=== PATIENT | female | born 1990 ===

== ENCOUNTER 2023-08-26 10:20 | Outpatient (REF) | payer MEDICAID, SELFPAY ==
[2023-08-26 13:17] LABS: MANUAL DIFF FLAG NO
[2023-08-26 13:32] LABS: Basophils Percent Auto 0.6 % (0-2); Eosinophils Absolute Auto 0.1 X10*3/uL (0.0-0.4); Eosinophils Percent Auto 1.1 % (0-4); Hematocrit 27.5 % (37.0-47.0); Hemoglobin 9.9 g/dl (12.0-16.0); Imm Gran Abs Auto 0.01 X10*3/uL (0.00-0.03); Imm Gran Pct Auto 0.2 % (0.0-0.4); Immature Retic Fraction 37.6 % (3.0-15.9); Lymphocytes Percent Auto 48.4 % (20-40); Mean Corpuscular Hemoglobin 33.7 pg (27.0-33.0); Mean Corpuscular Volume 93.5 fL (80.0-98.0); Mean Platelet Volume 12.3 fL (9.4-12.3); Monocytes Absolute Auto 0.9 X10*3/uL (0.1-1.2); Neutrophils Absolute Auto 2.2 x10*3/uL (2.0-8.3); Neutrophils Percent Auto 34.7 % (45-73); Platelet Count 296 X10*3/uL (160-400); Red Blood Count 2.94 X10*6/uL (4.20-5.50); Red Cell Distribution Width 15.8 % (11.0-16.0); Retic HGB Equivalent 35.9 pg (30.0-35.0); Reticulocytes Absolute 0.244 X10*6/uL (0.026-0.095); White Blood Count 6.2 X10*3/uL (4.8-10.8)
[2023-08-26 13:34] LABS: NRBC Pct Auto 1.3 /100WBC (0.0-0.2); RET ABN SCTR 1
[2023-08-26 13:36] LABS: Reticulocyte Percent 8.3 % (0.5-1.8)
[2023-08-26 14:00] LABS: Alanine Aminotransferase 53 U/L (0-31); Albumin Level 4.1 g/dL (3.5-5.0); Alkaline Phosphatase 118 U/L (39-117); Anion Gap 14 (12-20); Aspartate Amino Transferase 57 U/L (5-31); Bilirubin Direct 0.5 mg/dL (0.0-0.5); Bilirubin Total 2.8 mg/dL (0.0-1.0); Blood Urea Nitrogen 5 mg/dL (9-16); Calcium 9.7 mg/dL (8.4-10.2); Carbon Dioxide 22 mmol/L (22-29); Chloride 108 mmol/L (96-108); Estimated Glomerular Filt Rate > 60; Glucose Random 88 mg/dL (60-115); Iron 122 mcg/dL (30-160); Percent Iron Saturation 54 % (15-50); Potassium 4.5 mmol/L (3.3-5.1); Sodium 139 mmol/L (135-145); Total Iron Binding Capacity 225 mcg/dL (228-428); Total Protein 7.8 g/dL (6.5-8.0); Unsaturated Iron Binding 103 ug/dL
[2023-08-26 14:14] LABS: Ferritin 347 ng/mL (10-122)
[2023-08-27 10:46] LABS: HBc Num1 0.25 S/CO (0.00-0.79); HBsAGNum1 0.28 S/CO (0.00-0.99); HIV AB/AG Nonreactive (Nonreactive); HIV Num 1 0.05 S/CO (0.00-0.99); Hepatitis A Antibody IgM 0.14 Index (0-0.79); Hepatitis B Core Antibody Nonreactive (Nonreactive); Hepatitis B Surface Antigen Negative (Negative); ~HepC Num1 0.13 S/CO (0.00-0.79); ~Hepatitis A Antibody IgM Nonreactive (Nonreactive); ~Hepatitis B Surface Antibody NONREACTIVE (Nonreactive); ~Hepatitis C Antibody Nonreactive (Nonreactive)
[2023-08-28 14:48] LABS: RPR Rapid Plasma Reagin NON-REACTIVE (NON-REACTIVE)
[2023-08-31 11:33] LABS: Hematocrit 28.1 % (35.0-45.0); Hemoglobin 9.8 g/dL (11.7-15.5); MCH 33.7 pg (27.0-33.0); MCV 96.6 fL (80.0-100.0); RBC 2.91 Million/uL (3.80-5.10); RDW 15.4 % (11.0-15.0)
== END 2023-08-26 10:21 | disposition home or self-care (01) ==
LOC: HO.HHCL 10:20
PROVIDERS: Visit Provider Nurse Practitioner Primary Care
DX: Z00.00 Encounter for general adult medical examination without abnormal findings (principal); D57.1 Sickle-cell disease without crisis
CPT/HCPCS: 36415; 80048; 80076; 82728; 83020; 83540; 85014; 85018; 85025; 85041; 85045; 86592; 86704; 86706; 86709; 86803; 87340; 87389

== ENCOUNTER 2023-09-06 14:40 | Outpatient (REF) | payer MEDICAID, SELFPAY ==
[2023-09-06 16:04] LABS: MANUAL DIFF FLAG NO
[2023-09-06 16:09] LABS: Basophils Absolute Auto 0.1 X10*3/uL (0.0-0.2); Basophils Percent Auto 0.6 % (0-2); Eosinophils Absolute Auto 0.1 X10*3/uL (0.0-0.4); Hemoglobin 9.7 g/dl (12.0-16.0); Imm Gran Abs Auto 0.02 X10*3/uL (0.00-0.03); Imm Gran Pct Auto 0.2 % (0.0-0.4); Lymphocytes Absolute Auto 4.6 X10*3/uL (1.2-4.9); Lymphocytes Percent Auto 47.1 % (20-40); Mean Corpuscular HGB Conc 37.3 g/dl (31.0-35.0); Mean Corpuscular Hemoglobin 35.4 pg (27.0-33.0); Mean Corpuscular Volume 94.9 fL (80.0-98.0); Mean Platelet Volume 12.7 fL (9.4-12.3); Monocytes Absolute Auto 1.1 X10*3/uL (0.1-1.2); Neutrophils Absolute Auto 3.9 x10*3/uL (2.0-8.3); Neutrophils Percent Auto 40.1 % (45-73); Platelet Count 253 X10*3/uL (160-400); Red Blood Count 2.74 X10*6/uL (4.20-5.50); Red Cell Distribution Width 17.6 % (11.0-16.0); White Blood Count 9.7 X10*3/uL (4.8-10.8)
[2023-09-06 16:10] LABS: NRBC Pct Auto 1.2 /100WBC (0.0-0.2)
[2023-09-06 16:52] LABS: Alanine Aminotransferase 35 U/L (0-31); Albumin Level 4.4 g/dL (3.5-5.0); Alkaline Phosphatase 119 U/L (39-117); Aspartate Amino Transferase 53 U/L (5-31); Bilirubin Direct 0.6 mg/dL (0.0-0.5); Bilirubin Total 2.2 mg/dL (0.0-1.0); Total Protein 8.2 g/dL (6.5-8.0)
[2023-09-06 17:06] LABS: TSH reflex Free T4 1.06 uIU/mL (0.32-4.0); Vitamin D 25-OH Total 15.7 ng/mL (>30)
[2023-09-09 16:00] LABS: TS Negative Control Passed; TS Panel A 5; TS Panel B 6; TS Positive Control Passed; TSpotTB Borderline (Negative)
== END 2023-09-06 14:41 | disposition home or self-care (01) ==
LOC: HO.HHCL 14:40
PROVIDERS: Visit Provider Internal Medicine
DX: Z11.1 Encounter for screening for respiratory tuberculosis (principal); D57.1 Sickle-cell disease without crisis; R06.09 Other forms of dyspnea; H54.3 Unqualified visual loss, both eyes
CPT/HCPCS: 36415; 80076; 82306; 84443; 85025; 86481

== ENCOUNTER → 2023-09-28 09:00 | Outpatient (BNV) | payer MEDICAID, SELFPAY | PROVIDERS: Visit Provider Radiology Diagnostic Radiology | DX: N60.11 Diffuse cystic mastopathy of right breast (principal); N60.12 Diffuse cystic mastopathy of left breast | CPT/HCPCS: 76642; 77062; 77066 ==

== ENCOUNTER 2023-09-28 09:02 | Outpatient (REF) | payer MEDICAID, SELFPAY ==
--- NOTE | ~2023-09-28 | US_ITS ---
EXAMINATION: MM DIAGNOSTIC DIGITAL BREAST TOMOSYNTHESIS, BILATERAL US BREAST LIMITED, BILATERAL MAMMOGRAPHY: CLINICAL INFORMATION: 33-year-old female, complaining of pea-sized lump right breast 1:00 axis x 4 years. No prior mammograms available. [facility] in [place]. COMPARISON: Mammography: None available. New Baseline. TECHNIQUE: Digital breast tomosynthesis is performed in both the craniocaudal and mediolateral oblique views along with computer-aided detection (CAD). Synthesized 2D images are generated from the tomosynthesis. FINDINGS: The breasts are extremely dense, which lowers the sensitivity of mammography (ACR BI-RADS breast composition Category d). There is extremely dense probably fibrocystic breast parenchyma present bilaterally. No definite abnormality is seen abutting or subjacent to the BB marker at 1:00 in the right breast. Only dense parenchyma is noted. There is an island of parenchyma versus mass in the 6:00 axis of the left breast surrounded by fat, which we will evaluate with ultrasound. There is otherwise no definite mass, or architectural distortion which can be distinguished definitively from the extremely dense surrounding breast parenchyma. No suspicious calcifications are identified. There are a few lymph nodes in the left axilla, none with thickened cortex. No right axillary or skin abnormalities. ULTRASOUND: CLINICAL INFORMATION: Evaluate palpable focus right breast 1:00, and evaluate focal asymmetry in the 6:00 axis left breast. COMPARISON: None TECHNIQUE: Targeted sonographic evaluation was performed using a high frequency linear transducer. Attention was given to the right breast in the upper inner quadrant to include the palpable focus, as well as the left breast 6:00 axis to include the area of the focal asymmetry. Selected archived documentation. FINDINGS: RIGHT BREAST: There is extremely dense fibrocystic parenchyma present. No masses, abnormal shadowing, significant cystic abnormalities, or regions of architectural alteration are noted. No sonographic correlate to the 1:00 axis palpable focus. LEFT BREAST: -There is extremely dense fibrocystic parenchyma present. No masses, abnormal shadowing, significant cystic abnormalities, or regions of architectural alteration are noted. No sonographic correlate to the focal asymmetry 6:00 axis. This is consistent with an island of normal dense parenchyma. US/US breast BI limited mamm only IMPRESSION: -There are no findings suspicious for malignancy in either breast. -There is extremely dense fibrocystic tissue present bilaterally. -There is no sonographic or mammographic correlate to the 1:00 axis right breast area of palpable concern. Recommend clinical management and follow-up. -There is no sonographic correlate to the focal asymmetry of the left breast at the 6:00 axis. This has the appearance of an island of normal breast parenchyma. -Otherwise, recommend the patient resume annual screening mammography. OVERALL ASSESSMENT: Mammography: BI-RADS 1 - Negative Ultrasound: BI-RADS 1 - Negative RECOMMENDATION: 1. Patient should be managed based on the clinical impression. 2. Otherwise, routine annual screening mammography. This patient's information was entered into a reminder system with a target due date for their next mammogram.
== END 2023-09-28 09:03 | disposition home or self-care (01) ==
LOC: HO.MAMMO 09:02
PROVIDERS: Visit Provider Advanced Practice Midwife
DX: N63.12 Unspecified lump in the right breast, upper inner quadrant (principal)
CPT/HCPCS: 76642; 77062; 77066

== ENCOUNTER 2023-10-17 09:21 | Outpatient (REF) | payer MEDICAID, SELFPAY ==
--- NOTE | ~2023-10-17 | US_ITS ---
EXAMINATION: US PELVIS CLINICAL INFORMATION: Scanty menses, last menstrual period 10/09/2023, denies pain. COMPARISON: None available. TECHNIQUE: Ultrasound of the pelvis is performed using both transabdominal and transvaginal transducers along with Doppler. Transvaginal imaging is performed due to inadequate visualization transabdominally. FINDINGS: Uterus is anteverted and measures 8.0 x 3.7 x 4.4 cm. Endometrial thickness is 5 mm. Right ovary measures 4.2 x 1.8 x 2.9 cm, volume 11.0 mL. 1.8 x 1.0 x 1.4 cm simple right ovarian cyst is likely physiologic. There is no specific indication for additional imaging at this time. Left ovary measures 3.1 x 1.8 x 1.6 cm, volume 4.6 mL. 1.0 cm simple left ovarian cyst is likely physiologic. There is no specific indication for additional imaging at this time. 1.1 x 0.8 x 0.9 cm left ovarian cyst with thick echogenic wall may be physiologic such as a corpus luteum. Nabothian cysts in the cervix. Small amount of free fluid. US/US pelvic and transvaginal IMPRESSION: 1. Endometrial thickness is 5 mm. 2. Simple ovarian cysts measure 1.8 cm on the right and 1.0 cm on the left. There is no specific indication for additional imaging at this time. 1.1 x 0.8 x 0.9 cm left ovarian cyst with thick echogenic wall may be physiologic such as a corpus luteum. This study was presented today, November 01, 2023, for interpretation. Stat results provided at this time as requested by referring provider.
--- NOTE | ~2023-10-17 | US_ITS ---
EXAMINATION: US ABDOMEN COMPLETE CLINICAL INFORMATION: Elevated LFTs; sickle cell disease. COMPARISON: None available. TECHNIQUE: Real-time imaging of the abdominal viscera. FINDINGS: PANCREAS: Normal. ABDOMINAL AORTA: The proximal, mid, and distal segments are normal in caliber. INFERIOR VENA CAVA: Visualized portions are normal. LIVER: The liver is normal in size. The liver contour is normal. There is mildly increased liver parenchymal echogenicity. No focal hepatic lesion. There is no intrahepatic biliary duct dilatation seen. A 1.3 cm simple cyst is seen at the gallbladder fossa, for which no imaging follow-up is recommended. GALLBLADDER: Normal. The gallbladder is physiologically distended without evidence of stones, sludge, polyps, wall thickening or pericholecystic fluid. COMMON BILE DUCT: Normal in caliber measuring 0.5 cm in diameter. RIGHT KIDNEY: Normal. No hydronephrosis. No renal calculi or focal parenchymal lesions. The kidney measures 10.8 cm in maximum dimension. LEFT KIDNEY: Limited visualization. No hydronephrosis. No renal calculi or focal parenchymal lesions. The kidney measures 10.2 cm in maximum dimension. SPLEEN: Largely obscured by overlapping bowel gas. FREE FLUID: None. US/US abdomen complete IMPRESSION: 1. There is mild generalized increase in hepatic echotexture, consistent with fatty infiltration or hepatocellular disease. Please correlate clinically. No focal hepatic mass or intrahepatic biliary dilatation is seen. 2. Technically limited examination, in particular of the spleen and left kidney.
== END 2023-10-17 09:22 | disposition home or self-care (01) ==
LOC: HO.US 09:21
PROVIDERS: Visit Provider Internal Medicine
DX: N91.5 Oligomenorrhea, unspecified (principal)
CPT/HCPCS: 76700; 76830; 76856

== ENCOUNTER 2023-12-29 14:27 | Outpatient (REF) | payer MEDICAID, SELFPAY ==
[2024-01-01 23:09] LABS: TS Negative Control Passed; TS Panel A 0; TS Panel B 0; TS Positive Control Passed; TSpotTB Negative (Negative)
== END 2023-12-29 14:28 | disposition home or self-care (01) ==
LOC: HO.HHCL 14:27
PROVIDERS: Visit Provider Internal Medicine
DX: R06.09 Other forms of dyspnea (principal)
CPT/HCPCS: 36415; 86481

== ENCOUNTER 2024-01-09 14:26 | Outpatient (REF) | payer MEDICAID, SELFPAY ==
--- NOTE | ~2024-01-09 | XR_ITS ---
EXAMINATION: XR CHEST CLINICAL INFORMATION: Positive TB test COMPARISON: None TECHNIQUE: 2 views of the chest were obtained. FINDINGS: No significant abnormality is noted involving the heart, lungs, mediastinum, bony thorax or soft tissues. XR/XR chest 2V IMPRESSION: Clear lungs. Electronically signed by: Arabella Calle MD 01/09/2024 02:47 PM EDT RP
== END 2024-01-09 14:27 | disposition home or self-care (01) ==
LOC: HO.HHCX 14:26
PROVIDERS: Visit Provider Internal Medicine
DX: R06.09 Other forms of dyspnea (principal); Z22.7 Latent tuberculosis
CPT/HCPCS: 71046